=== PATIENT | male | born 1945 | race Caucasian/White ===

== ENCOUNTER → 2018-06-07 | Outpatient (CLI) | payer MEDICARE, BC ==
--- NOTE | 2018-06-07 10:41 | RAD ---
EXAM: CERVICAL SPINE 2-3V. HISTORY: Neck pain, cervical fusion. COMPARISON: None. FINDINGS: There are anterior cervical discectomy and fusion changes at C4-5 with an anterior plate fixed by screws at each level. The plate is proud inferiorly by 3 mm. There is noninstrumented anterior fusion at C5-6. There is mild reversal of the normal cervical lordosis from C4 through C7. Degenerative disc disease is moderate at C6-T1. No fractures are identified. There is no prevertebral soft tissue swelling. 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 IMPRESSION: 1. Anterior fusion is instrumented at C4-5 and noninstrumented at C5-6. An anterior fusion plate at C4-5 is probably inferiorly by 3 mm. 2. Mild reversal of the cervical lordosis from C4 through C7. 3. Degenerative disc disease is moderate from C6 through T1. Electronically signed by: Aldo Castillo MD (06/07/2018 10:39 AM) [facility]
== END | disposition home or self-care (01) ==
LOC: RAD 10:21
PROVIDERS: ATTEND Neurological Surgery
DX: Z47.89 Encounter for other orthopedic aftercare (principal); M50.33 Other cervical disc degeneration, cervicothoracic region; M47.892 Other spondylosis, cervical region; Z98.1 Arthrodesis status
CPT/HCPCS: 72040